=== PATIENT | male | born 1940 | race Two or more races ===

== ENCOUNTER 2017-02-04 19:20 | Inpatient (IN) | payer OTHER ==
[~2017-02-04] VITALS: Ht 170.2 cm; Wt 64.8 kg
[~2017-02-04 19:20] MED LIST: CINN500C7 PO; METF-312 PO; OMEG500C PO; PIOG15TA38 PO
[2017-02-04 20:51] LABS: Basophils # (auto) 0 uL; Basophils % (auto) 0.7 % (0.0-2.0); DEFINITIVE VIEW TRANSMISSION; Eosinophils # (auto) 0 uL; Eosinophils % (auto) 0.7 % (0.0-7.0); Hematocrit 28.6 % (41.0-53.0); Hemoglobin 9.4 g/dL (13.5-17.5); Lymphocytes # (auto) 0.5 uL; Mean Corpuscular Hgb Conc. 32.7 g/dL (32.0-36.0); Mean Corpuscular Volume 94.9 fL (80.0-100.0); Mean Platelet Volume 8.4 fL (7.4-10.4); Monocytes # (auto) 0.5 uL; Monocytes % (auto) 8.1 % (0.0-12.0); Neutrophils # (auto) 5.5 uL; Neutrophils % (auto) 83.5 % (37.0-80.0); Platelet Count (auto) 213 10^3/uL (140-450); White Blood Cell 6.6 10^3/uL (4.4-10.8)
[2017-02-04 20:58] LABS: Red Cell Distribution Width 21.9 % (11.6-16.0)
[2017-02-04 21:23] LABS: BUN/Creatinine Ratio 30.6; Bilirubin, Total 0.6 mg/dL (0.2-1.0); Calcium 8.2 mg/dL (8.5-10.1); Potassium 4.2 mmol/L (3.5-5.1); Total Protein 5.6 g/dL (6.4-8.2)
[2017-02-04 21:27] LABS: Partial Thromboplastin Time 28.5 sec (22.64-33.71)
[2017-02-04 21:40] LABS: B-Type Natriuretic Peptide 106.84 pg/mL (0-100); Temperature: 23.5 C (20.0-25.0)
[2017-02-04 21:49] LABS: INR 1.16 (0.9-1.15); Prothrombin Time 12.7 sec (9.37-12.3)
[2017-02-04] MEDS ORDERED: DEXTROSE 50% SYRINGE 50 ML IV ONE (21:52)
[2017-02-04] MEDS ORDERED: DEXTROSE (50%) 50ML SYRG IV ONE (22:00)
[2017-02-04 22:03] LABS: Anisocytosis Slight; Burr Cells FEW; Ovalocytes FEW; Platelet Estimate Adequate; Tear Drop Cells FEW
[2017-02-04] MEDS ORDERED: SODIUM CHLORIDE 0.9% 1,000 ML IV SCH (23:42)
[2017-02-04] MEDS ORDERED: ACETAMINOPHEN 325 MG TAB PO PRN (23:45)
[2017-02-04] MEDS ORDERED: TEMAZEPAM 15 MG CAP PO PRN (23:45)
[2017-02-04] MEDS ORDERED: ONDANSETRON HCL 4 MG/2 ML VIAL IV PRN (23:45)
[2017-02-05] VITALS (7 sets, daily range): BP systolic 102–148; BP diastolic 60–91
[2017-02-05] MEDS ORDERED: DEXTROSE (50%) 50ML SYRG IV PRN (00:15)
[2017-02-05] MEDS: HYDROcodone-ACET 5/325MG TAB PO PRN ×3 (01:34→19:57)
[2017-02-05] MEDS: ACCU-CHEK COMFORT CURVE STRIP VI SCH ×6 (03:43→23:43)
[2017-02-05] MEDS: InsuLIN REG 1unit/0.01ml Soln (100units/ml) SC SCH ×6 (03:44→23:40)
[2017-02-05 05:50] LABS: Basophils # (auto) 0 uL; Basophils % (auto) 0.5 % (0.0-2.0); DEFINITIVE VIEW TRANSMISSION; Eosinophils # (auto) 0.1 uL; Eosinophils % (auto) 1.4 % (0.0-7.0); Hematocrit 25.8 % (41.0-53.0); Hemoglobin 8.6 g/dL (13.5-17.5); Lymphocytes # (auto) 0.4 uL; Lymphocytes % (auto) 8.5 % (10.0-50.0); Mean Corpuscular Hgb Conc. 33.5 g/dL (32.0-36.0); Mean Corpuscular Volume 92.8 fL (80.0-100.0); Mean Platelet Volume 7.8 fL (7.4-10.4); Monocytes # (auto) 0.5 uL; Monocytes % (auto) 9.1 % (0.0-12.0); Neutrophils # (auto) 4.3 uL; Neutrophils % (auto) 80.5 % (37.0-80.0); Platelet Count (auto) 192 10^3/uL (140-450); White Blood Cell 5.3 10^3/uL (4.4-10.8)
[2017-02-05 05:51] LABS: Red Cell Distribution Width 21.3 % (11.6-16.0)
[2017-02-05 05:54] LABS: Albumin 2.6 g/dL (3.4-5.0); BUN/Creatinine Ratio 29.6; Bilirubin, Total 0.6 mg/dL (0.2-1.0); Calcium 7.7 mg/dL (8.5-10.1); Total Protein 4.9 g/dL (6.4-8.2)
[2017-02-05] MEDS ORDERED: SODIUM CHLOR 0.9% PF (SALINE LOCK) 10ML VIAL IV SCH (06:00)
[2017-02-05] MEDS ORDERED: MORP1CAP9 PO (07:33)
[2017-02-05] MEDS ORDERED: HYDR-531 PO (07:33)
[2017-02-05] MEDS ORDERED: NAPR220C PO (07:33)
[2017-02-05] MEDS ORDERED: CALC600T10 PO (07:33)
[2017-02-05] MEDS ORDERED: GLIM1TAB2 PO (07:33)
[2017-02-05] MEDS ORDERED: ONDA4TAB5 PO (07:33)
[2017-02-05] MEDS ORDERED: IRBE150T26 PO (07:34)
[2017-02-05 08:07] LABS: Platelet Estimate Adequate
[2017-02-05 08:08] LABS: Anisocytosis Slight; Tear Drop Cells FEW
[2017-02-05 09:04] LABS: Urine Bilirubin Negative (Negative); Urine Blood Negative /uL (Negative); Urine Color Yellow (Yellow); Urine Glucose Normal (Normal); Urine Ketone Negative (Negative); Urine Nitrite Negative (Negative); Urine RBC <1 /hpf (0 - 3); Urine Urobilinogen Normal (Negative); Urine pH 5.5 (5.0-8.0)
[2017-02-05] MEDS: MULTIPLE VITAMIN TAB PO SCH (09:30)
[2017-02-05] MEDS ORDERED: FAMOTIDINE (10MG/ML) 2ML VL IV ONE (10:00)
[2017-02-05] MEDS: MORPHINE SULF INJ 2 MG/ML SYRINGE 1ML IV PRN (18:46)
[2017-02-06] MEDS: MORPHINE SULF INJ 2 MG/ML SYRINGE 1ML IV PRN ×3 (02:58→14:38)
[2017-02-06] MEDS: ACCU-CHEK COMFORT CURVE STRIP VI SCH ×4 (03:33→15:56)
[2017-02-06] MEDS: InsuLIN REG 1unit/0.01ml Soln (100units/ml) SC SCH ×4 (03:33→15:56)
[2017-02-06 05:46] VITALS: BP 112/78
[2017-02-06 08:00] VITALS: BP 139/77
[2017-02-06] MEDS: MULTIPLE VITAMIN TAB PO SCH (09:44)
[2017-02-06] MEDS: HYDROcodone-ACET 5/325MG TAB PO PRN (11:47)
[2017-02-06 13:00] VITALS: BP 148/77
[2017-02-06] MEDS ORDERED: PERCOT PO (15:41)
[2017-02-06] MEDS ORDERED: MORPHINE SULF INJ 2 MG/ML SYRINGE 1ML IV ONE (15:45)
[2017-02-06 17:00] VITALS: BP 131/64
== END 2017-02-06 19:46 | disposition home health service (06) | DRG 948 ==
LOC: ER 19:22 → WEST WING 19:23
PROVIDERS: ADMIT Emergency Medicine; ATTEND Internal Medicine
DX: G89.3 Neoplasm related pain (acute) (chronic) (principal); C79.51 Secondary malignant neoplasm of bone; C61 Malignant neoplasm of prostate; I10 Essential (primary) hypertension; D64.9 Anemia, unspecified; I70.0 Atherosclerosis of aorta; E11.649 Type 2 diabetes mellitus with hypoglycemia without coma; S42.431D Displaced fracture (avulsion) of lateral epicondyle of right humerus, subsequent encounter for fracture with routine healing; D63.8 Anemia in other chronic diseases classified elsewhere; W18.39XA Other fall on same level, initial encounter; Z66 Do not resuscitate; Z87.442 Personal history of urinary calculi; Z82.3 Family history of stroke; Z84.89 Family history of other specified conditions; Y93.89 Activity, other specified; Y92.098 Other place in other non-institutional residence as the place of occurrence of the external cause; Y99.8 Other external cause status; Z87.81 Personal history of (healed) traumatic fracture
CPT/HCPCS: 36415; 71010; 73060; 73090; 80053; 81001; 82962; 83735; 83880; 84484; 85025; 85610; 85730; 87040; 93005; 94761; 96361; 96374; J2405; J3490